=== PATIENT | male | born 1945 | race Caucasian/White ===

== ENCOUNTER 2018-02-06 07:24 | Observation (INO) | payer OTHER ==
[2018-02-04 12:15] LABS: BASOPHILS # (AUTO) 0.1 (0.0-0.1); BASOPHILS % 1.3 % (0.0-1.0); EOSINOPHILS # (AUTO) 0.3 (0.0-0.4); EOSINOPHILS % 4.6 % (0.0-6.0); LYMPHOCYTES # (AUTO) 2.1 (1.0-3.2); LYMPHOCYTES % 31.2 % (18.0-39.1); MEAN CORPUSCULAR HEMOGLOBIN 31.6 pg (28-32); MEAN CORPUSCULAR HGB CONC 31.9 g/dL (31-35); MEAN CORPUSCULAR VOLUME 98.9 fL (81-99); MONOCYTES # (AUTO) 0.5 (0.2-0.8); MONOCYTES % 7.4 % (4.4-11.3); NEUTROPHILS # (AUTO) 3.7 (2.1-6.9); NEUTROPHILS % 55.1 % (38.7-80.0); PLATELET COUNT 158 x10e3/uL (140-360); RED BLOOD COUNT 4.75 x10e6/uL (4.3-5.7); RED CELL DISTRIBUTION WIDTH 12.5 % (11.7-14.4)
[2018-02-04 12:27] LABS: INR 1.05; PARTIAL THROMBOPLASTIN TIME 25.2 seconds (23.8-35.5); PROTHROMBIN TIME 12.9 seconds (11.9-14.5)
[2018-02-04 12:36] LABS: ALANINE AMINOTRANSFERASE 17 IU/L (0-55); ALBUMIN 4.1 g/dL (3.5-5.0); ALBUMIN/GLOBULIN RATIO 1.2 (0.8-2.0); ALKALINE PHOSPHATASE 67 IU/L (40-150); ANION GAP 15.9 mmol/L (8-16); BLOOD UREA NITROGEN 19 mg/dL (7-26); BUN/CREATININE RATIO 20 (6-25); CALCIUM 10.5 mg/dL (8.4-10.2); CARBON DIOXIDE 34 mmol/L (22-29); CHLORIDE 102 mmol/L (98-107); CREATININE, SERUM 0.96 mg/dL (0.72-1.25); EST GLOMERULAR FILTRATION RATE > 60 ML/MIN (60-); GLUCOSE 103 mg/dL (74-118); POTASSIUM 4.9 mmol/L (3.5-5.1); SODIUM 147 mmol/L (136-145)
--- NOTE | 2018-02-04 13:23 | Diagnostic Imaging Report ---
PROCEDURE: Frontal and lateral views of the chest. COMPARISON: None. INDICATIONS: PREOPERATIVE CHEST XRAY FOR UROLOGY SURGERY FINDINGS: Lines/tubes: None. Lungs: The lungs are well inflated and clear. There is no evidence of pneumonia or pulmonary edema. Pleura: There is no pleural effusion or pneumothorax. Heart and mediastinum: Aortic calcifications. The heart and the mediastinum are normal. Bones: No acute bony abnormality. Mild degenerative changes of the spine. IMPRESSION: No acute cardiopulmonary disease. Dictated by: Bry Zarate M.D. on 02/04/2018 at 13:26 Electronically approved by: Bry Zarate M.D. on 02/04/2018 at 13:26
[~2018-02-06] VITALS: Ht 165.1 cm; Wt 74.8 kg
[~2018-02-06 07:24] MED LIST: GABAPENTIN400 MG PO; LOTREL 10-20 M1 EACH PO; NORCO 10-325 T1 EACH PO; VENTOLIN HFA18 GM INH
[2018-02-06] MEDS ORDERED: CEFOXITIN SOD 1 GM VIAL ONE (08:56)
[2018-02-06] MEDS ORDERED: BELLADONNA/OPIUM 30 MG SUPP RC ONE (11:09)
[2018-02-06] MEDS ORDERED: SODIUM CHLORIDE 0.9% 1000ML 1,000 ML IV SCH (11:59)
[2018-02-06] MEDS ORDERED: HYDROCODONE/APAP 7.5MG-325MG 1 EA TAB PO PRN (12:00)
[2018-02-06] MEDS ORDERED: MORPHINE SULFATE INJ 4 MG/ML INJ IV PRN (12:00)
[2018-02-06] MEDS ORDERED: FENTANYL CITRATE/PF 100MCG/2 ML INJ ONE ×2 (12:06→18:51)
--- NOTE | 2018-02-06 13:16 | Operative Report ---
DATE OF PROCEDURE: February 06, 2018 PREOPERATIVE DIAGNOSIS 1. Benign prostatic hypertrophy. 2. Urgency, frequency, nocturia. 3. Decreased force of stream. POSTOPERATIVE DIAGNOSIS 1. Benign prostatic hypertrophy. 2. Urgency, frequency, nocturia. 3. Decreased force of stream. OPERATION PERFORMED: GreenLight photovaporization of prostate. ANESTHESIA: General. INDICATIONS: This patient is a 72-year-old white male who has been having urgency, frequency, nocturia, decreased force of stream and recurrent urinary tract infections. His calculated AUA prostate symptom score was 31, and his quality of life symptom score was 6. The patient has had a cystoscopy performed, but he was unable to give me an adequate uroflow for a meaningful study. For further details, please refer to the history and physical. The procedure was done in the following fashion. PROCEDURE: The patient was taken to the operating room and placed under general anesthesia and dressed and draped with Hibiclens in the lithotomy position in the usual fashion. The 22-Montenegrin laser cystoscope was inserted with the 12-degree oblique lens. No urethral strictures were encountered. The sphincter and verumontanum were intact. The prostate was estimated at about 40 to 50 g. Clear efflux was seen from both ureteral orifices. The bladder was moderately trabeculated. No bladder tumors or bladder stones were identified. A GreenLight photovaporization of the prostate was performed using the MoXy fiber. When I was working in the area of the bladder neck where there was mild middle lobe hypertrophy, I started off with the coagulation at 80 and the vaporization at 80, and then I started working my way circumferentially back to the area of the verumontanum. As I moved further away from the bladder neck, I increased to 120 for vaporization and then to 160 for vaporization. At the end of the procedure, the verumontanum was intact and the prostatic urethra was wide open, and I then painted the inside of the bladder with the coagulation. The total laser time was 33 minutes 21 seconds, and the total number of joules given was [id number] joules. The patient tolerated the procedure well and left the operating room in good condition with a 22-Montenegrin coude 3-way catheter to continuous bladder irrigation with sterile saline. The patient will be monitored postoperatively, and Dr. Marcus Rodriguez is being consulted to help with the medical management. Job#: [id number] EV
[2018-02-06] MEDS ORDERED: HYDROCODONE/APAP 10MG-325MG TAB PO PRN (14:08)
[2018-02-06] MEDS ORDERED: MORPHINE SULFATE 2 MG/ML SYR IV PRN ×2 (14:15)
[2018-02-06] MEDS ORDERED: LIDOCAINE HCL 2% LOCAL INJ 5 ML SDV VIAL INJ ONE (15:21)
[2018-02-06] MEDS ORDERED: ONDANSETRON HCL INJ 2 MG/ML VIAL ONE (15:21)
[2018-02-06] MEDS ORDERED: SEVOFLURANE INHAL SOLN 250 ML PEN BTL ONE (15:21)
[2018-02-06] MEDS ORDERED: EPHEDRINE SULFATE INJ 50 MG/10 ML SYR ONE (15:21)
[2018-02-06] MEDS ORDERED: PROPOFOL IV EMULSION 10 MG/ML 20 ML VIAL ONE (15:21)
[2018-02-06] MEDS ORDERED: DEXAMETHASONE SOD PHOS INJ 4 MG/ML VIAL ONE (15:21)
[2018-02-06 15:25] VITALS: BP 125/60
[2018-02-06] MEDS: DOCUSATE SODIUM 100 MG CAP PO SCH (16:58)
[2018-02-06] MEDS: GABAPENTIN 400 MG CAP PO SCH ×2 (16:58→21:05)
[2018-02-06] MEDS: CEFOXITIN SOD 1 GM VIAL IV SCH ×2 (17:00→23:47)
[2018-02-06] MEDS ORDERED: CEFOXITIN 1GM/ DEXTROSE 50ML 50 ML IV SCH (18:00)
[2018-02-06] MEDS ORDERED: SODIUM CHLORIDE 0.45% 1,000 ML IV ONE (18:15)
[2018-02-06] MEDS ORDERED: MIDAZOLAM HCL 2 MG/2 ML VIAL ONE (18:51)
--- NOTE | 2018-02-06 19:13 | Consultation ---
DATE OF CONSULTATION: February 06, 2018 MEDICAL CONSULTATION REQUESTING PHYSICIAN: Dr. Tenorio REASON FOR CONSULTATION: Medical management. CHIEF COMPLAINT: Enlarged prostate. HISTORY OF PRESENT ILLNESS: This is a 72-year-old man with a history of enlarged prostate, and E. coli urinary tract infection. Now, brought in today for GreenLight photovaporization of the prostate by Dr. Tenorio and he is now resting comfortably in bed. His pain is minimal. Denies any shortness of breath or chest pain. PAST MEDICAL HISTORY: BPH, E. coli urinary tract infection, nocturia, bladder stone 2014, urinary calculus. 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 PAST SURGICAL HISTORY: Skin cancer surgery, colon resection in 2006, colonoscopy, left hip surgery, tumor removal from the shoulder. ALLERGIES: PER ELECTRONIC MEDICAL RECORD. FAMILY HISTORY: Sister had breast cancer. Grandfather and brother had colon cancer. Sister and brother had hypertension. SOCIAL: Patient is . He quit cigarettes in 2002, has a 40-pack year smoking history. Occasional alcohol. MEDICATIONS: Per electronic medical record. REVIEW OF SYSTEMS: Denies any dizziness, chest pain, shortness of breath, nausea, vomiting, diarrhea. Denies any back pain or leg pain. Denies any dizziness or blurred vision. PHYSICAL EXAM VITAL SIGNS: Have been reviewed. GENERAL: A tired-appearing man resting in bed. HEENT: Anicteric. Pupils responsive to light. No oral lesions. CARDIOVASCULAR: Normal S1, S2. LUNGS: Moderate breath sounds. ABDOMEN: Soft, nontender, nondistended. : He has Feliz in place with a near clear-colored urine. EXTREMITIES: SCDs bilaterally. SKIN: Dry. PSYCHIATRIC: Normal affect. NEUROLOGIC: Alert and oriented times 3, moving all extremities. LABS: Reviewed. MEDICATIONS: Reviewed. ASSESSMENT AND PLAN: This is a 72-year-old man 1. BPH. 2. Nocturia. 3. Hypercalcemia. 4. Hypernatremia. 5. Constipation. 6. Neuropathy. 7. Pelvic pain. 8. Sinus bradycardia. 9. History of cigarette use. PLAN 1. Feliz in place. Continue Feliz. Continue irrigation. 2. Continue pain control. 3. Follow up sodium level and calcium level in the morning after rehydration. 4. Change fluid to 1/2 normal saline. 5. Continue bowel regimen. 6. Continue gabapentin. 7. Use SCD for DVT prophylaxis. 8. Disposition. Follow up labs in the morning. Job#: [id number] CQ
[2018-02-06 20:00] VITALS: BP 130/63
[2018-02-07] VITALS (7 sets, daily range): BP systolic 108–146; BP diastolic 57–69
[2018-02-07] MEDS: CEFOXITIN SOD 1 GM VIAL IV SCH ×3 (05:33→17:01)
[2018-02-07 07:43] LABS: BASOPHILS % 0.1 % (0.0-1.0); EOSINOPHILS % 0.1 % (0.0-6.0); HEMOGLOBIN 13.6 g/dL (14.0-18.0); LYMPHOCYTES # (AUTO) 1.1 (1.0-3.2); LYMPHOCYTES % 7.9 % (18.0-39.1); MEAN CORPUSCULAR HEMOGLOBIN 32.1 pg (28-32); MEAN CORPUSCULAR HGB CONC 32.4 g/dL (31-35); MEAN CORPUSCULAR VOLUME 99.1 fL (81-99); MONOCYTES # (AUTO) 0.6 (0.2-0.8); MONOCYTES % 4.7 % (4.4-11.3); NEUTROPHILS # (AUTO) 11.7 (2.1-6.9); NEUTROPHILS % 86.8 % (38.7-80.0); PLATELET COUNT 137 x10e3/uL (140-360); RED BLOOD COUNT 4.24 x10e6/uL (4.3-5.7); RED CELL DISTRIBUTION WIDTH 12.6 % (11.7-14.4)
[2018-02-07 07:56] LABS: ANION GAP 10.6 mmol/L (8-16); BLOOD UREA NITROGEN 9 mg/dL (7-26); BUN/CREATININE RATIO 12 (6-25); CALCIUM 8.9 mg/dL (8.4-10.2); CARBON DIOXIDE 28 mmol/L (22-29); CHLORIDE 105 mmol/L (98-107); CREATININE, SERUM 0.76 mg/dL (0.72-1.25); EST GLOMERULAR FILTRATION RATE > 60 ML/MIN (60-); GLUCOSE 129 mg/dL (74-118); POTASSIUM 4.6 mmol/L (3.5-5.1); SODIUM 139 mmol/L (136-145)
[2018-02-07] MEDS: DOCUSATE SODIUM 100 MG CAP PO SCH ×2 (08:08→16:43)
[2018-02-07] MEDS: GABAPENTIN 400 MG CAP PO SCH ×3 (08:08→21:07)
--- NOTE | 2018-02-07 10:04 | Progress Note ---
DATE: February 07, 2018 TIME: 5 a.m. SUBJECTIVE: Overnight no events. . REVIEW OF SYSTEMS: Denies any dizziness, chest pain, shortness of breath. Denies any back pain, leg pain. OBJECTIVE VITAL SIGNS: Reviewed. GENERAL APPEARANCE: A tired-appearing man resting in the bed. HEENT: Anicteric. Pupils responsive to light. No oral lesions. CARDIOVASCULAR: Normal S1 and S2. LUNGS: Moderate breath sounds, ABDOMEN: Soft and nontender. Nondistended. : He has Feliz catheter in place with pink colored urine. EXTREMITIES: There is no edema or calf tenderness. NEUROLOGIC: Alert and oriented x3. Moving all extremities. SKIN: Dry. PSYCHIATRIC: Normal affect. LABS: Reviewed. MEDICATIONS: Reviewed. ASSESSMENT AND PLAN: This is a 72-year-old man 1. Benign prostatic hypertrophy. 2. Nocturia. 3. Hypercalcemia. 4. Hypernatremia. 5. Constipation. 6. Neuropathy. 7. Pelvic pain. 8. Sinus bradycardia. 9. History of cigarette use. 10. Thrombocytopenia. PLAN 1. Continue Feliz. Continue bladder irrigation. 2. He has new leukocytosis today, could be inflammatory or marginalization of the white blood cells. 3. Mild thrombocytopenia. 4. Hypernatremia has resolved with half normal saline fluids. 5. Hypercalcemia has also resolved with rehabilitation. 6. Continue current plan of care and follow up with Dr. Tenorio. Job#: [id number]
[2018-02-07 10:47] LABS: PLATELET ESTIMATE SLIGHTLY DECREASED; PLATELET MORPHOLOGY COMMENT NORMAL
--- NOTE | 2018-02-07 12:36 | Progress Note ---
DATE: February 07, 2018 Today the patient is one day status post GreenLight laser photovaporization of the prostate. The patient states he feels good. He denies pain. He is breathing without difficulty. His abdomen is soft. There is no evidence of epididymitis. There is no evidence of deep venous thrombophlebitis. The catheter efflux is clear now with continuous bladder irrigation running at a slow drip. The patient's hemoglobin was 13.6 and hematocrit was 42.1. His sodium was 139, his BUN 9 and creatinine 0.76. IMPRESSION: At this time is of benign prostatic hypertrophy with obstruction. PLAN: Is to proceed tomorrow with removal of Feliz catheter for a trial of voiding. Job#: [id number] STEFANIE
[2018-02-08] VITALS: BP 138/63
[2018-02-08] MEDS: CEFOXITIN SOD 1 GM VIAL IV SCH ×3 (00:03→12:00)
[2018-02-08 04:00] VITALS: BP 144/68
[2018-02-08] MEDS: DOCUSATE SODIUM 100 MG CAP PO SCH (09:00)
[2018-02-08] MEDS: GABAPENTIN 400 MG CAP PO SCH (09:06)
[2018-02-08 10:38] VITALS: BP 144/68
[2018-02-08] MEDS ORDERED: MACROBID 100 M100 MG PO (10:57)
--- NOTE | 2018-02-08 11:27 | Progress Note ---
DATE: February 08, 2018 The patient is now 2 days status post green light photo vaporization of the prostate. The Feliz catheter has been removed. The patient is voiding clear-colored urine. He has perfect control over urination. He denies pain and he states he wants to go home. The patient is breathing without difficulty and is eating without difficulty and having bowel movements without difficulty. My plan at this time is to discharge the patient on his preoperative medications and is going to go home on Macrobid 100 mg p.o. twice daily, number 20. He will have a return appointment to see me again in 2 weeks. Job#: [id number] BARBARA
--- NOTE | 2018-02-09 00:19 | Discharge Summary ---
OPERATION PERFORMED: GreenLight photovaporization of the prostate. CONSULTING PHYSICIAN: Dr. Marcus Rodriguez. FINAL DISCHARGE DIAGNOSES 1. Benign prostatic hypertrophy with obstruction. 2. Decreased force of stream. 3. Urgency, frequency, nocturia. 4. History of colon cancer. 5. History of Hodgkin disease. 6. Hypertension. HISTORY OF PRESENT ILLNESS: This patient is a 72-year-old white male who has a long history of urgency, frequency, nocturia, and decreased force of stream. He has been in urinary retention and has had an indwelling catheter for more than 2 weeks at a time in the past. The patient currently has nocturia times 3. He has been treated with Flomax and his symptoms are getting worse. His [employer] Prostate Symptom Score is 31. For further details, please refer to the history and physical. HOSPITAL COURSE: The patient came to the hospital on February 06, 2018, and had a GreenLight photovaporization of the prostate. He tolerated the procedure well and left the operating room in good condition with a coude catheter to continuous bladder irrigation with sterile saline. The patient did well. On the 1st postoperative day, he had very clear-colored urine coming out the catheter with the catheter off traction and the continuous bladder irrigation going at a slow rate. The catheter was removed on the 2nd postoperative day. The patient voided with a good urinary stream. He had perfect control. He denied incontinence and his urine was clear. The patient was discharged on his preoperative medications plus going home on Macrobid 100 mg p.o. twice daily, #20. He will have a return appointment to see me again in 2 weeks. RUDY HAIDER MD Job#: [id number] CF
== END 2018-02-08 12:43 | disposition home or self-care (01) ==
LOC: OR 07:24 → EDBD 10:00 → PACU V 16:02 → MED/SURG 16:14
PROVIDERS: ADMIT Urology; ATTEND Urology
DX: N40.1 Benign prostatic hyperplasia with lower urinary tract symptoms (principal); R35.1 Nocturia; R33.8 Other retention of urine; R39.12 Poor urinary stream; N39.0 Urinary tract infection, site not specified; C81.90 Hodgkin lymphoma, unspecified, unspecified site; Z87.442 Personal history of urinary calculi; J44.9 Chronic obstructive pulmonary disease, unspecified; Z87.891 Personal history of nicotine dependence; E83.52 Hypercalcemia; E87.0 Hyperosmolality and hypernatremia; K59.00 Constipation, unspecified; G62.9 Polyneuropathy, unspecified; R00.1 Bradycardia, unspecified; Z85.828 Personal history of other malignant neoplasm of skin; D69.6 Thrombocytopenia, unspecified; R35.0 Frequency of micturition; R39.15 Urgency of urination; Z85.038 Personal history of other malignant neoplasm of large intestine; Z85.71 Personal history of Hodgkin lymphoma; I10 Essential (primary) hypertension
CPT/HCPCS: 36415 ×2; 52647; 52648; 71046; 80048; 80053; 85025 ×2; 85610; 85730; 93005; G0378 ×3; J0694 ×3; J1100; J2001; J2250; J2405; J7030